=== PATIENT | male | born 1970 | race Caucasian/White ===

== ENCOUNTER → 2017-10-01 | Outpatient (CLI) | payer OTHER, BC ==
--- NOTE | 2017-10-01 10:42 | Diagnostic Imaging Report ---
EXAMINATION: PA and lateral chest at 1007 AM INDICATION: Cough There are no prior studies available for comparison. The heart size is within normal limits. The lungs are clear. There is no evidence for pneumonia, failure or pleural effusion. The mediastinum is not widened. The osseous structures are intact. IMPRESSION: There is no evidence for an acute cardiopulmonary abnormality. Dictated by: Dictated on workstation # [id number]
== END ==
LOC: RAD 09:35
PROVIDERS: ATTEND Physician Assistant
DX: R05 Cough (principal)
CPT/HCPCS: 71046